=== PATIENT | male | born 1960 | race Caucasian/White ===

== ENCOUNTER 2017-08-19 09:45 | Emergency (ER) | payer OTHER ==
[~2017-08-19] VITALS: Ht 182.9 cm; Wt 90.7 kg
[~2017-08-19 09:45] MED LIST: AMBIEN10 MG PO; AMLODIPINE PO; ASA325 PO; BUSPIRONE HCL15 MG PO; CELEBREX100 MG PO; CYMBALTA PO; DIOVAN HCT 3201 EAC1; IBUPROFEN400 MG PO; LORCET 10-6501 EAC1 PO; LOSARTAN PO; LYRICA PO; MULTIVITAMIN1 EAC2 PO; NEXIUM40 MG PO; NRC7.5T PO; TORADOL PO; ULTRAM 50MG50 MG PO; VALIUM2 MG PO; XANAX0.5 MG PO; XANAX1 MG PO; Z.0.XANAX2 MG PO; Z.1.DIOVAN HCT 1601 PO; [UNRECOGNIZED DRUG - CODE] PO; [UNRECOGNIZED DRUG - OTHER] PO
--- NOTE | 2017-08-19 11:33 | Diagnostic Imaging Report ---
PROCEDURE: X-RAY CHEST, TWO VIEWS COMPARISON: Patients [facility], DX, CHEST SINGLE (PORTABLE), 05/16/2017, 10:46. 05/16/17. INDICATIONS: FLU FINDINGS: The lungs are reasonably well inflated. Patchy multifocal consolidations involving the right upper and lower lung zones and the left lower lung zone. No pleural effusion or pneumothorax. Stable cardiomediastinal contour with a normal heart size and no overt pulmonary edema. No acute osseous abnormalities. CONCLUSION: Bilateral patchy consolidation suggestive of multifocal pneumonia in the clinical setting of flulike symptoms. Followup chest radiograph in 8 weeks is suggested to document resolution. Dictated by: Melvin Hooker M.D. on 08/19/2017 at 11:42 Electronically approved by: Melvin Hooker M.D. on 08/19/2017 at 11:42
[2017-08-19] MEDS ORDERED: SODIUM CHLORIDE 0.9% 1000ML 1,000 ML IV STA (11:35)
[2017-08-19] MEDS ORDERED: AZITHROMYCIN 500MG/NS 250 ML 250 ML IV STA (11:35)
[2017-08-19] MEDS ORDERED: CEFTRIAXONE SOD 1 GM VIAL IM ONE (11:45)
[2017-08-19 12:15] LABS: BASOPHILS # (AUTO) 0.1 (0.0-0.1); BASOPHILS % 1.4 % (0.0-1.0); EOSINOPHILS # (AUTO) 0.3 (0.0-0.4); EOSINOPHILS % 3.8 % (0.0-6.0); HEMATOCRIT 36.4 % (38.2-49.6); HEMOGLOBIN 11.2 g/dL (14.0-18.0); LYMPHOCYTES # (AUTO) 1.4 (1.0-3.2); LYMPHOCYTES % 16.2 % (18.0-39.1); MEAN CORPUSCULAR HEMOGLOBIN 22.8 pg (28-32); MEAN CORPUSCULAR HGB CONC 30.8 g/dL (31-35); MONOCYTES # (AUTO) 0.9 (0.2-0.8); MONOCYTES % 9.9 % (4.4-11.3); NEUTROPHILS # (AUTO) 5.9 (2.1-6.9); NEUTROPHILS % 67.7 % (38.7-80.0); PLATELET COUNT 524 x10e3/uL (140-360); RED BLOOD COUNT 4.92 x10e6/uL (4.3-5.7); RED CELL DISTRIBUTION WIDTH 18.7 % (11.7-14.4)
[2017-08-19 12:29] LABS: ALANINE AMINOTRANSFERASE 19 IU/L (0-55); ALBUMIN 3.8 g/dL (3.5-5.0); ALBUMIN/GLOBULIN RATIO 0.8 (0.8-2.0); ALKALINE PHOSPHATASE 87 IU/L (40-150); ANION GAP 13.4 mmol/L (8-16); BLOOD UREA NITROGEN 16 mg/dL (7-26); BUN/CREATININE RATIO 20 (6-25); CALCIUM 9.3 mg/dL (8.4-10.2); CARBON DIOXIDE 27 mmol/L (22-29); CHLORIDE 95 mmol/L (98-107); CREATININE, SERUM 0.81 mg/dL (0.72-1.25); EST GLOMERULAR FILTRATION RATE > 60 ML/MIN (60-); GLUCOSE 102 mg/dL (74-118); POTASSIUM 4.4 mmol/L (3.5-5.1); SODIUM 131 mmol/L (136-145)
[2017-08-19] MEDS ORDERED: LEVAQUIN500 MG PO (13:10)
[2017-08-19] MEDS ORDERED: PROAIR HFA INH8.5 GM INH (13:10)
[2017-08-19 13:11] VITALS: BP 138/74
== END 2017-08-19 13:41 | disposition home or self-care (01) ==
LOC: ER 09:45
DX: R50.9 Fever, unspecified (principal); R05 Cough; J15.9 Unspecified bacterial pneumonia
CPT/HCPCS: 36415; 71020; 80048; 80053; 83518; 83605; 85025; 87040; 87070; 87400; 99284; J0456; J0696; J7030

== ENCOUNTER → 2017-09-16 | Outpatient (CLI) | payer MEDICARE, OTHER ==
[~2017-09-16] MED LIST changes: +LEVAQUIN500 MG PO; +PROAIR HFA INH8.5 GM INH
--- NOTE | 2017-09-20 14:08 | Polysomnography ---
DATE OF STUDY: HISTORY OF PRESENT ILLNESS: The patient reports difficulty initiating and maintaining sleep. The patient also has daytime somnolence. INTERPRETATION: The patient slept for 346.5 minutes out of 403 minutes. Sleep efficiency was 83.7%. The sleep onset latency was 22 minutes and 51 seconds. The latency to REM was 111.5 minutes. The patient spent 87 minutes in REM sleep, which was 27% of the night. The patient spent 45 minutes in the left decubitus position, 337 minutes in the right decubitus position, and 5 minutes in the supine position. There were no apneic or hypopneic events. The patient did have some increased limb movements during sleep. The [place] sleep score was 5. IMPRESSION 1. No obstructive sleep apnea seen on this study. 2. Increased leg movements consistent with periodic limb movements. RECOMMENDATIONS 1. Depending on the clinical scenario, consider repeat sleep study or a multiple sleep latency test. 2. Avoid alcohol or sedatives prior to retiring at night. 3. Medically supervised weight loss. Job#: [id number] [place]
== END ==
LOC: SLEEP 19:44
PROVIDERS: ATTEND Internal Medicine Critical Care Medicine
DX: G47.33 Obstructive sleep apnea (adult) (pediatric) (principal)
CPT/HCPCS: 95810